=== PATIENT | female | born 1985 | race Caucasian/White ===

== ENCOUNTER 2018-12-14 06:07 | Day surgery (SDC) | payer OTHER ==
[~2018-12-14] VITALS: Ht 180.3 cm; Wt 84.5 kg
[~2018-12-14 06:07] MED LIST: DOCU100 PO; GLYCAS PR; ONDA4 PO; ONDA4ODT MM; PREN-16 PO; PROM25 PO
--- NOTE | 2018-12-14 06:38 | NUR ---
History, Chart, Medications and Allergies reviewed before start of procedure. Patient States Post-Procedure ride home has been arranged.
[2018-12-14] MEDS ORDERED: Synthroid25 MCG PO (06:41)
--- NOTE | 2018-12-14 09:42 | NUR ---
PT TO STEP DOWN, DROWSY, STILL SLIGHT NAUSEA, ENCOURAGE DB AND COUGH, HAS BRIEF PERIODS OF SATS DROP 86%, THEN RETURNS TO MID 90%S APPLIED O2 AT 2LNC FOR NOW. ALLOWING PT TO REST
--- NOTE | 2018-12-14 09:53 | NUR ---
ASSUMED CARE OF PATIENT FROM ZACHERY Schneider RN. REPORT RECEIVED.
--- NOTE | 2018-12-14 10:39 | NUR ---
PATIENT WAS STILL EXPERIENCING NAUSEA, OBTAINED VERBAL ORDER FROM DR OBREGON FOR PHENERGAN 12.5 MG IV x1, ADMINISTERED TO PATIENT. WILL MONITOR FOR RELIEF. ALSO OBTAINED VERBAL ORDER FROM DR SOARES FOR HOME SCRIPT OF ZOFRAN 4MG SL Q8HRS PRN NAUSEA. WILL CALL IN TO [facility] FOR PATIENT.
--- NOTE | 2018-12-14 11:28 | NUR ---
DR OBREGON UPDATED, PATIENT FAMILY UPDATED. PATIENT DOING WELL, WILL ANTICIPATE WAKING FOR D/C INSTRUCTIONS SOON.
--- NOTE | 2018-12-14 11:57 | NUR ---
D/C INSTRUCTIONS GIVEN WITH STATED UNDERSTANDING, PATIENT WITH SOME NAUSEA FOR A MOMENT, LAID HOB BACK A BIT, STATES BETTER. REPORT TO MARGOTH DECKER FOR REMAINING D/C HOME.
--- NOTE | 2018-12-14 12:04 | NUR ---
ASSUMED CARE OF PT FOR RN LUNCH BREAK. PT ATTEMPTED TO GET UP TO DRESS. C/O PAIN AND FEELING LIGHT HEADED UPON SITTING. BOTH RESOLVED ONCE LYING BACK DOWN. VSS. LETTING PT REST. MOTHER GETTING PRESCRIPTIONS FILLED. DRESSING D/I, WITH EXCEPTION TO STERI STIP ON FAR RIGHT SIDE OF ABD. SMALL AMOUNT OF RED DRAINAGE NOTED.
--- NOTE | 2018-12-14 12:31 | NUR ---
PT FEELING BETTER. ABLE TO GET UP AND GET DRESSED. SIPPING ON WATER AND EATING CRACKERS. WAITING FOR MOTHER TO RETURN TO TAKE HOME.
--- NOTE | 2018-12-14 12:36 | NUR ---
REPORT TO DENISE CARRANZA RN.
--- NOTE | 2018-12-14 13:31 | NUR ---
1320 Patient up to Ambulate independently. Gait steady. Discharge instructions reviewed with patient. Patient verbalizes understanding. Copy given to patient to take home. PER LIDIA AND PT/MOTHER Patient States Post-Procedure ride home has been arranged. Discharged via wheelchair to private car for ride home.
== END 2018-12-14 22:45 | disposition home or self-care (01) ==
LOC: ORSCMMR 06:07 → ORD 07:30 → ORSCMMR 22:45
PROVIDERS: Surgery
PROC: 0FT44ZZ Resection of Gallbladder, Percutaneous Endoscopic Approach (ICD-10-PCS; principal; 2018-12-14 07:30)
PROC: BF031ZZ Plain Radiography of Gallbladder and Bile Ducts using Low Osmolar Contrast (ICD-10-PCS; principal; 2018-12-14 07:30)
DX: K81.1 Chronic cholecystitis (principal); E06.3 Autoimmune thyroiditis; Z79.899 Other long term (current) drug therapy
CPT/HCPCS: 74300; 88304; C1729; J0330; J0694; J1885; J2250; J2405; J2550; J2704; J2710; J2765; J3010; J7120

== ENCOUNTER 2019-02-13 12:44 | Day surgery (SDC) | payer OTHER ==
[~2019-02-13] VITALS: Ht 180.3 cm; Wt 82.3 kg
[~2019-02-13 12:44] MED LIST changes: +Synthroid25 MCG PO
[2019-02-13] MEDS ORDERED: CELE100 PO (13:14)
[2019-02-13] MEDS ORDERED: CELE200 PO (13:15)
== END 2019-02-13 14:45 | disposition home or self-care (01) ==
LOC: ORSCSDS 12:44
PROVIDERS: Surgery
PROC: 0DJD8ZZ Inspection of Lower Intestinal Tract, Via Natural or Artificial Opening Endoscopic (ICD-10-PCS; principal; 2019-02-13 14:00)
DX: K57.30 Diverticulosis of large intestine without perforation or abscess without bleeding (principal); E03.9 Hypothyroidism, unspecified; G47.33 Obstructive sleep apnea (adult) (pediatric); Z79.899 Other long term (current) drug therapy
CPT/HCPCS: J2704; J7120

== ENCOUNTER 2021-01-18 18:37 | Emergency (ER) | payer OTHER ==
[~2021-01-18] VITALS: Ht 180.3 cm; Wt 81.7 kg
[~2021-01-18 18:37] MED LIST changes: +CELE100 PO; +CELE200 PO
[2021-01-18] MEDS ORDERED: EUTHYROX50 MCG PO (18:52)
[2021-01-18] MEDS ORDERED: Phentermine HCl30 MG PO (18:52)
== END 2021-01-18 20:40 | disposition home or self-care (01) ==
LOC: ER 18:37
DX: R51.9 Headache, unspecified (principal); K21.9 Gastro-esophageal reflux disease without esophagitis; Z88.2 Allergy status to sulfonamides; Z86.16 Personal history of COVID-19
CPT/HCPCS: 96374; 96375; 99283-25; J1100; J1200; J1885; J2765; J7030

== ENCOUNTER 2022-04-15 10:14 | Day surgery (SDC) | payer OTHER ==
[~2022-04-15] VITALS: Ht 180.3 cm; Wt 85.5 kg
[~2022-04-15 10:14] MED LIST changes: +EUTHYROX50 MCG PO; +Phentermine HCl30 MG PO
--- NOTE | 2022-04-15 12:42 | NUR ---
04/15/22 1242 Nancy Hollis PT MEDICATED WITH FENTANYL 25MCG IVP PER ORDERS FOR 6/10 CRAMPING IN ABDOMEN. PT DENIES NAUSEA, VSS. 15 MINUTES AFTER DOSING, PT STATES PAIN HAS SUBSIDED AND SHE REFUSES ANY ADDITIONAL PAIN MEDICATION. PT GIVEN MARISSA, MOM AT BEDSIDE. WILL CONTINUE TO MONITOR
== END 2022-04-15 13:05 | disposition home or self-care (01) ==
LOC: ORSCSDS 10:14
PROVIDERS: Obstetrics & Gynecology
PROC: 0UDB8ZX Extraction of Endometrium, Via Natural or Artificial Opening Endoscopic, Diagnostic (ICD-10-PCS; principal; 2022-04-15 11:30)
PROC: 0U5B8ZZ Destruction of Endometrium, Via Natural or Artificial Opening Endoscopic (ICD-10-PCS; principal; 2022-04-15 11:30)
DX: N92.1 Excessive and frequent menstruation with irregular cycle (principal); E06.3 Autoimmune thyroiditis; Z79.899 Other long term (current) drug therapy
CPT/HCPCS: 88305; A9270; J0690; J1100; J1885; J2250; J2370; J2405; J2704; J3010